=== PATIENT | male | born 1980 | race Caucasian/White ===

== ENCOUNTER 2020-08-27 07:57 | Emergency (ER) | payer BC ==
[~2020-08-27] VITALS: Ht 172.7 cm; Wt 79.4 kg
[~2020-08-27 07:57] MED LIST: AMOXICILLIN 50500 MG PO; LOSARTAN-HCTZ1 EAC1 PO; NICOTINE TRANSD21 M1 TRANSDERM; NORVASC5 MG PO; PERCOCET PO; ZOFRAN ODT4 MG PO
[2020-08-27 08:00] VITALS: BP 129/89
[2020-08-27] MEDS ORDERED: HYDROCODON-ACE1 EA11 PO (08:57)
== END 2020-08-27 09:14 | disposition home or self-care (01) ==
LOC: M.ERS 07:57
DX: S62.395A Other fracture of fourth metacarpal bone, left hand, initial encounter for closed fracture (principal); F17.210 Nicotine dependence, cigarettes, uncomplicated; W22.8XXA Striking against or struck by other objects, initial encounter; Y93.89 Activity, other specified; Y92.89 Other specified places as the place of occurrence of the external cause; Y99.8 Other external cause status